=== PATIENT | male | born 1990 | race Hispanic/Latino ===

== ENCOUNTER 2024-10-29 11:09 | Emergency (ER) | payer SELFPAY ==
[2024-10-29 11:12] VITALS: BP 138/83
[2024-10-29 13:05] VITALS: BP 117/65; BP 121/80; BP 126/83; PULSE 73; PULSE 75; PULSE 77
[2024-10-29 13:11] VITALS: BP 131/72
[2024-10-29 13:23] LABS: Hematocrit 43.3 % (39.0-52.0); Hemoglobin 15.0 g/dL (13.0-18.0); Mean Corp Hgb Conc. 34.6 g/dL (33.0-37.0); Mean Corpuscular Volume 91.9 fL (80.0-94.0); Nucleated Red Blood Cells % 0 % (-); Platelet Count 220 10^3/uL (130-400); Red Cell Dist. Width 11.8 % (11.5-14.5)
[2024-10-29 13:27] LABS: Urine Character Clear (Clear)
[2024-10-29 13:38] LABS: ALT (SGPT) 25 U/L (0-50); AST (SGOT) 26 U/L (17-59); Albumin 5.1 g/dl (3.5-5.0); Alkaline Phosphatase 77 U/L (38-126); Blood Urea Nitrogen 15 mg/dl (9-20); Calcium 9.8 mg/dl (8.4-10.2); Carbon Dioxide 26 mmol/L (22-30); Chloride 108 mmol/L (98-107); Glucose 108 mg/dl (70-99); Magnesium 1.8 mg/dl (1.6-2.3); Potassium 4.5 mmol/L (3.5-5.1); Sodium 141 mmol/L (135-145); Total Protein 8.2 g/dl (6.3-8.2); eGFR > 60.00
[2024-10-29 13:46] VITALS: BP 135/74
[2024-10-29 13:47] LABS: Troponin I < 0.012 ng/ml
[2024-10-29 13:48] LABS: D-Dimer < 0.27 ug/mlFEU (0.00-0.50)
--- NOTE | 2024-10-29 13:54 | ED.GENMED ---
History of Present Illness
General
Chief Complaint: Cardiac Symptoms
Source: patient
Exam Limitations: none
Time Seen by Provider: 10/29/24 12:21
Nursing documentation reviewed up to this point in time: agreed with
History of Present Illness
History of Present Illness:
Patient presents to ED secondary to sudden onset of chest palpitations, fatigue, and generalized weakness, while he was at work this morning. Patient works in [employer], had presented to work, and was weed whacking, when his symptoms started.
Patient denies any symptoms when he first went to work. Patient had normal breakfast. Patient states that he always has water to hydrate during work. After his symptoms started, he sat down and rested, with resolution of symptoms. However, when
he attempted to work again, his symptoms had returned. He alerted his employer who brought patient to ED for an evaluation. At the time of evaluation ED, patient is without any complaints. Of note, over the past few months, patient reports waking
up in the middle of the night with episodes of palpitations, which resolved spontaneously. Denies recent change in diet. Denies recent weight loss. Denies family history of heart disease. Denies recent travel or surgery. Denies leg pain or
swelling. Denies recent illness. Denies insect or bug bites. Denies drinking alcohol or smoking. Patient currently does not have any family physician, due to lack of health insurance. In addition, for the past 2 to 3 days, patient has felt
'discomfort' in his head.
Review of Systems
Review of Systems
Allergies reviewed?: Yes
All Other Systems: ROS reviewed and negative except as documented in HPI and ROS
Constitutional: Reports fatigue; Denies fever
Respiratory: Reports no symptoms
Cardiac: Reports palpitations
ABD/GI: Reports no symptoms
Musculoskeletal: Reports no symptoms
Skin: Reports no symptoms
Neurological: Reports dizzy and weakness
Phy Exam
Physical Exam
Physical Exam:
Physical Exam
General: no apparent distress, not acutely ill. afebrile.
Head: nc/at. eomi
Neck: supple. no meningeal signs.
Heart: s1/s2 regular rate and rhythm.
Lungs: no acute respiratory distress. clear bilaterally
Abdomen: normal bowel sounds. not tender.
Neuro: alert and oriented x 3. no focal neurological deficits
Skin: no rash
Psychiatric: well kept. interactive and cooperative
Extremities: no edema. no calf tenderness.
Course
Orders/Labs/Results
Orders:
Orders
10/29/24 11:12
Electrocardiogram (*1) Urgent
Reason for Study: Palpitations
EKG- Treatment ONCE
10/29/24 12:59
CT Head W/o Iv Contrast Urgent
Comment:
Reason For Exam: headache w weakness
Orthostatic VS- Treatment ONCE
10/29/24 13:04
Comprehensive Metabolic Panel Urgent
D-Dimer Urgent
Lyme Progressive Urgent
Magnesium Urgent
TSH Urgent
10/29/24 13:05
Complete Blood Count/With Diff Urgent
Ehrlichia/Anaplasma by PCR [S] Urgent
Troponin I Urgent
Blood Parasites Urgent
SHAKIRA Source: Blood/Venous
Specimen Description:
10/29/24 13:14
Drug Screen, Urine [Urine Drug Abuse Screen] Urgent
Date Specimen was Collected: 10/29/24
Time Specimen was Collected: 13:13
Urinalysis Reflex To Culture Urgent
Date Specimen was Collected: 10/29/24
Time Specimen was Collected: 13:13
Abnormal Lab Results
10/29/24 10/29/24
13:04 13:05
MCH 31.8 H pg
(27.0-31.0)
MPV 11.3 H fL
(7.4-10.4)
Absolute Lymphs (auto) 1.1 L 10^3/uL
(1.2-3.4)
Neutrophils % 78.0 H %
(42.2-75.2)
Lymphocytes % 14.0 L %
(20.5-51.1)
Chloride 108 H mmol/L
(98-107)
Glucose 108 H mg/dl
(70-99)
Albumin 5.1 H g/dl
(3.5-5.0)
10/29/24 13:05
10/29/24 13:04
Vital Signs
Initial and Last Documented VS:
Initial Vital Signs
Temp Pulse Resp BP Pulse Ox
98.1 F 95 16 138/83 97
10/29/24 11:12 10/29/24 11:12 10/29/24 11:12 10/29/24 11:12 10/29/24 11:12
Last Documented Vital Signs
Temp Pulse Resp BP Pulse Ox
98.1 F 87 18 120/76 98
10/29/24 11:12 10/29/24 15:00 10/29/24 15:00 10/29/24 15:00 10/29/24 15:00
MDM/Problems Addressed
MDM/Problems Addressed:
Fairly extensive sinus disease noted on CT head.
Via language line, had extensive discussion with patient and spouse regarding patient's presentation, along with test results. Patient will be started empirically on a Z-Eder secondary to findings noted on CT scan along with headache and scratchy
throat sensation. In addition, as patient is currently uninsured, recommended that he follows up with [facility] medical clinic at [facility], as he is a [facility] resident, for further evaluation, including potential cardiology evaluation,
i.e. Holter monitoring, with palpitations. Patient and spouse expressed understanding at time of discharge.
Lyme titer pending.
*Pulse Oximetry
SaO2: 97
Oxygen Mode of Delivery: Room air
Patient hypoxic: no
*Critical Care Note
Total Time (30-74mins, 75-104mins- exclusive of procedures): Not Applicable
ED Attending Note
-
Portions of this chart may have been created with voice recognition software.� Occasional wrong word or��sound alike� substitutions may have occurred due to the inherent limitations of voice recognition software.
Discharge Plan
Departure
Patient Disposition: Home (Routine Discharge)
Date of Disposition: 10/29/24
Time of Disposition: 16:31
Patient with high blood pressure during this ER visit?: Yes
Condition: Fair
Discharge Problem:
Heart palpitations, Sinusitis
Instructions: Sinusitis in adults - ED (DC), Palpitations - ED (DC)
Prescriptions:
New
azithromycin [Zithromax Z-Eder] 250 mg tablet
250 mg PO DAILY 6 Days Qty: 6 0RF
Referrals:
NONE,* [Family Provider, Internal Medicine]
Activity Restrictions/Additional Instructions:
As discussed, strongly recommend contacting [facility] for admission regarding free medical clinic, as you are [facility] resident without current medical insurance.
Interventions
Interventions:
*Risk Screen - Suicide Last Done: 10/29/24 11:13
*General Assessment Last Done: 10/29/24 12:00
*Neglect/Abuse Screening Last Done: 10/29/24 11:13
*ED- Fall Risk Assessment Last Done: 10/29/24 12:00
*Nursing Disposition Last Done: 10/29/24 18:11
ED- Pulmonary Assessment Last Done: 10/29/24 12:00
ED- Cardiac Assessment Last Done: 10/29/24 12:00
Discharge Date and Time
Discharge Date/Time: 10/29/24 18:11
Print Language: FRENCH
[2024-10-29 14:00] VITALS: BP 117/80
[2024-10-29 14:07] LABS: TSH 0.85 uIU/ml (0.47-4.68)
[2024-10-29 15:00] VITALS: BP 120/76
== END 2024-10-29 18:11 | disposition home or self-care (01) ==
LOC: EMR 11:09
PROVIDERS: EMERGENCY PHYSICIAN Emergency Medicine
DX: J32.9 Chronic sinusitis, unspecified (principal); R00.2 Palpitations; R53.1 Weakness; Z59.71 Insufficient health insurance coverage
CPT/HCPCS: 99284; 70450; 80053; 80306; 81003; 83735; 84443; 84484; 85025; 85379; 86618; 87015; 87207; 87468; 87484; 87798; 93005